=== PATIENT | female | born 1985 | race African-American/Black ===

== ENCOUNTER 2017-06-14 13:19 | Emergency (ER) | payer OTHER ==
[2017-06-14 13:24] VITALS: BP 122/70; PULSE 76; TEMP 98.2; BMI 30.8
--- NOTE | 2017-06-14 13:40 | PDOC ---
History of Present Illness - General Chief Complaint: Hives Stated Complaint: RX FOR ALLERGIES Time Seen by Provider: 06/14/17 13:35 History Source: Patient Exam Limitations: No Limitations - History of Present Illness Initial Comments: CHIEF COMPLAINT: 32 y/o afebrile female with no significant PMH c/o allergy symptoms x 1 week. HISTORY OF PRESENT ILLNESS: The patient states she has had very itchy skin for the past week, along with dry cough and SOB. She states she gets these allergy symptoms every season but usually summer is the worst. She is taking Benadryl for her symptoms but needs something else. She denies f/c, n/v/d, CP, runny nose, watery eyes, facial swelling, difficulty breathing, abd pain, back pain, hematuria, dysuria. Vital signs on arrival are within normal limits. REVIEW OF SYSTEMS: GENERAL/CONSTITUTIONAL: No fever/chills. No weakness. No weight change. HEAD, EYES, EARS, NOSE AND THROAT: No change in vision. No ear pain or discharge. No sore throat. CARDIOVASCULAR: +SOB. No chest pain. RESPIRATORY: +dry cough. No wheezing, or hemoptysis. GASTROINTESTINAL: No abd pain, nausea, vomiting, diarrhea. GENITOURINARY: No dysuria, frequency, or change in urination. MUSCULOSKELETAL: No joint or muscle swelling or pain. No neck or back pain. SKIN: +dry, itchy skin NEUROLOGIC: No headache, vertigo, loss of consciousness, or loss of sensation. PHYSICAL EXAM: GENERAL: The patient is awake, alert, and fully oriented, in no acute distress. She is very well appearing, ambulatory, in NAD or obvious discomfort. No cough in the ER. HEAD: Normal with no signs of trauma. No TTP of maxillary or frontal sinuses. EYES: Pupils equal, round and reactive to light, extraocular movements intact, sclera anicteric, conjunctiva clear. FACE: No lip or tongue swelling. Airway patent. No angioedema. LUNGS: No wheezing, rhonchi, rales, crackles or accessory muscle use. EXTREMITIES: Normal range of motion, no edema. NEUROLOGICAL: Normal speech, normal gait. SKIN: Dry skin of arms and legs which patient continues to scratch at. No obvious hives or rash. Past History - Past Medical History Allergies/Adverse Reactions: Allergies Allergy/AdvReac Type Severity Reaction Status Date / Time aspirin Allergy Severe Unverified 06/14/17 13:24 ibuprofen Allergy Severe Unverified 06/14/17 13:24 ALLIEVE Allergy Severe Uncoded 06/14/17 13:24 Home Medications: Ambulatory Orders Prednisone [Deltasone -] 40 mg PO DAILY #8 tablet 06/14/17 Other medical history: DENIES - Psycho/Social/Smoking Cessation Hx Suicidal Ideation: No Smoking History: Never smoked Hx Alcohol Use: No Drug/Substance Use Hx: No Substance Use Type: None *Physical Exam - Vital Signs Last Vital Signs Temp Pulse Resp BP Pulse Ox 98.2 F 76 20 122/70 96 06/14/17 13:21 06/14/17 13:21 06/14/17 13:21 06/14/17 13:21 06/14/17 13:21 Medical Decision Making - Medical Decision Making A/P: 32 y/o afebrile female with seasonal allergy symptoms. Plan is as follows : 1. PO prednisone Will send rx for 4 day course of prednisone to her pharmacy. Suggested she take over the counter Zyrtec D, Kimberly D or Claritin D daily for allergy symptoms as well. Pt instructed to keep skin moisturized, follow up with her PCP within 1 week and return to the ER with any worsening or concerning symptoms. The patient verbalizes understanding of all instructions, has no further questions and is awaiting discharge. *DC/Admit/Observation/Transfer Diagnosis at time of Disposition: Rash and nonspecific skin eruption Seasonal allergies Qualifiers: Chronicity: acute Allergic rhinitis trigger: unspecified Qualified Code(s): J30.2 - Other seasonal allergic rhinitis - Discharge Dispostion Disposition: HOME Condition at time of disposition: Good - Prescriptions Prescriptions: Prednisone [Deltasone -] 40 mg PO DAILY #8 tablet - Patient Instructions Printed Discharge Instructions: Allergies (Alternative Therapy), DI for Rash Additional Instructions: Discharge Instructions: -A prescription for steroids was sent to your pharmacy; please start taking TOMORROW 06/15/17 -Try taking over the counter Zyrtec D, Kimberly D or Claritin D for 1 week to help relieve symptoms; you can take this with the prescription steroids -Follow up with your doctor within 1 week -Return to the ER with any worsening or concerning symptoms
[2017-06-14] MEDS ORDERED: predniSONE 20 MG TABLET (UD) PO ONE (13:56)
[2017-06-14] MEDS ORDERED: predniSONE 20 MG TABLET (UD) ONE (13:59)
== END 2017-06-14 14:00 | disposition home or self-care (01) ==
LOC: JERFT 13:19
DX: R21 Rash and other nonspecific skin eruption (principal); J30.2 Other seasonal allergic rhinitis
CPT/HCPCS: 99281-25